=== PATIENT | female | born 1985 | race Caucasian/White ===

== ENCOUNTER 2017-12-28 15:00 | Emergency (ER) | payer OTHER ==
[~2017-12-28] VITALS: Ht 162.6 cm; Wt 100.0 kg
[~2017-12-28 15:00] MED LIST: DEPA500T3 PO; GEOD80CA PO; LEVO.05 PO; PROZ40CA PO
[2017-12-28 15:09] VITALS: BP 117/61; PULSE 95; RESP 16; TEMP 98.3; O2SAT 99
[2017-12-28 15:42] LABS: AUTOMATED NEUTROPHIL # 4.7 TH/MM3 (1.8-7.7); BASOPHIL # 0.1 TH/MM3 (0-0.2); BASOPHIL % 0.7 % (0.0-2.0); EOSINOPHIL # 0.2 TH/MM3 (0-0.4); EOSINOPHIL % 2.7 % (0.0-4.0); HEMATOCRIT 42.4 % (35.0-46.0); HEMOGLOBIN 14.5 GM/DL (11.6-15.3); LYMPH % 26.6 % (9.0-44.0); LYMPHOCYTE # 2.1 TH/MM3 (1.0-4.8); MEAN CELL VOLUME 84.5 FL (80.0-100.0); MEAN CORPUSCULAR HEMOGLOBIN 28.8 PG (27.0-34.0); MEAN CORPUSCULAR HGB CONC 34.1 % (32.0-36.0); MEAN PLATELET VOLUME 8.6 FL (7.0-11.0); MONO % 8.4 % (0.0-8.0); MONOCYTE # 0.6 TH/MM3 (0-0.9); NEUT % 61.6 % (16.0-70.0); PLATELET COUNT 245 TH/MM3 (150-450); RED BLOOD COUNT 5.02 MIL/MM3 (4.00-5.30); RED CELL DISTRIBUTION WIDTH 13.1 % (11.6-17.2); WHITE BLOOD COUNT 7.7 TH/MM3 (4.0-11.0)
[2017-12-28 15:54] LABS: BILIRUBIN, URINE NEG (NEG); BLOOD, URINE NEG (NEG); GLUCOSE,URINE NEG (NEG); KETONE, URINE NEG (NEG); NITRITE,URINE NEG (NEG); SQUAMOUS EPITHELIAL CELL URINE 4 /hpf (0-5); URINE COLOR YELLOW (YELLW/STRAW); URINE LEUKOCYTE ESTERASE NEG (NEG)
[2017-12-28 16:04] LABS: ALBUMIN 3.9 GM/DL (3.4-5.0); AST (GOT) 25 U/L (15-37); BICARBONATE 22.8 MEQ/L (21.0-32.0); BLOOD UREA NITROGEN 19 MG/DL (7-18); CALCIUM 9.8 MG/DL (8.5-10.1); CHLORIDE 107 MEQ/L (98-107); CREATININE 1.04 MG/DL (0.50-1.00); GLOMERULAR FILTRATION RATE 61 ML/MIN (>89); GLUCOSE,RANDOM 89 MG/DL (74-106); SODIUM (NA) 140 MEQ/L (136-145)
[2017-12-28 16:05] LABS: ALT (GPT) 42 U/L (10-53)
[2017-12-28 16:14] LABS: ALKALINE PHOSPHATASE 66 U/L (45-117); TOTAL BILIRUBIN ADULT 0.3 MG/DL (0.2-1.0); TOTAL PROTEIN 7.6 GM/DL (6.4-8.2)
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
[2017-12-28] MEDS ORDERED: ACETAMINOPHEN 325 MG TAB PO ONE (16:45)
[2017-12-28 17:01] VITALS: BP 145/85; PULSE 89; RESP 16; TEMP 98.6; O2SAT 99
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
[2017-12-28] MEDS ORDERED: DIVA500T3 PO (18:05)
[2017-12-28] MEDS ORDERED: PROZ40CA PO (18:06)
[2017-12-28] MEDS ORDERED: LEVO.05 PO (18:07)
[2017-12-28] MEDS ORDERED: METF500T PO (18:08)
[2017-12-28] MEDS ORDERED: GEOD80CA PO (18:08)
[2017-12-28 22:22] VITALS: BP 112/60; PULSE 93; RESP 18; TEMP 98.6; O2SAT 98
[2017-12-29 02:17] VITALS: BP 132/60; PULSE 82; RESP 16; TEMP 97.7; O2SAT 97
--- NOTE | 2017-12-29 09:56 | RADRPT ---
EXAM DATE/TIME: 12/29/2017 09:35 [facility] COMPARISON: No previous studies available for comparison. INDICATIONS : Lower abdomen pain MEDICAL HISTORY : None. SURGICAL HISTORY : None. ENCOUNTER: Initial ACUITY: 1 day PAIN SCORE: 8/10 LOCATION: abdomen FINDINGS: Supine and upright views of the abdomen were performed. The abdominal bowel gas pattern is normal. No air fluid levels are seen. No abnormal masses, calcifications, or organomegaly is seen. The visu alized lower lungs are clear. No evidence of free intraperitoneal gas. The osseous structures are u nremarkable. CONCLUSION: Normal examination. Angela Mendoza MD on December 29, 2017 at 9:54 Board Certified Radiologist. This report was verified electronically.
[2017-12-29] MEDS ORDERED: ACETAMINOPHEN 325 MG TAB PO ONE (10:15)
--- NOTE | 2017-12-29 11:44 | RADRPT ---
EXAM DATE/TIME: 12/29/2017 11:10 [facility] COMPARISON: No previous studies available for comparison. INDICATIONS : Pelvic pain. MEDICAL HISTORY : Thyroid disease. Fibroid tumor on the brain. Depression. Anxiety. Bipolar disorder. SURGICAL HISTORY : Right breast surgery. ENCOUNTER: Initial ACUITY: 1 week PAIN SCORE: 6/10 LOCATION: Bilateral pelvis MEASUREMENTS: UTERUS: 6.5 x 2.3 x 2.5 cm ENDOMETRIAL STRIPE: 4 mm RIGHT OVARY: 2.6 x 2.0 x 2.7 cm LEFT OVARY: 2.5 x 1.6 x 1.3 cm FINDINGS: UTERUS: The myometrium has homogeneous echotexture without mass. RIGHT OVARY: Ovary contains no mass or significant cystic lesion. LEFT OVARY: Ovary contains no mass or significant cystic lesion. MISCELLANEOUS: No free fluid. CONCLUSION: Normal examination. Angela Mendoza MD on December 29, 2017 at 11:42 Board Certified Radiologist. This report was verified electronically.
--- NOTE | 2017-12-29 12:04 | PD ---
Physical Exam Narrative I was asked by adjunct psychology instructor to reevaluate patient is now she is complaining of left lower quadrant abdominal pain. Patient states that pain began when she got to the emergency department over 18 hours ago. Patient she has anything at the time of the pain seems to be getting worse. Patient rates pain as a sharp stabbing pain in her left lower quadrant without radiation. Patient denies anything making it better or worse. Patient uncertain last time she had a bowel movement. Patient denies any loss change in bowel or bladder. Denies any vaginal discharge or fevers. Denies any back pain. GENERAL: Well-developed, overly nourished, in no acute distress, and non-ill appearing. SKIN: Focused skin assessment warm and dry. HEAD: Atraumatic. Normocephalic. EYES: Pupils equal and round. EOMI. No scleral icterus. No injection or drainage. ENT: No nasal bleeding or discharge. Mucous membranes pink and moist. NECK: Trachea midline.Supple. No nuclear rigidity. RESPIRATORY: No accessory muscle use. No respiratory distress. GASTROINTESTINAL: Abdomen soft, nondistended, and no guarding. Hepatic and splenic margins not palpable. Normal bowel sounds x4. No pulsatile mass. Patient reports tenderness palpation left lower quadrant of the abdomen. PELVIC: Patient refused. MUSCULOSKELETAL: No obvious deformities. No clubbing. No cyanosis. No edema. Full range of motion. NEUROLOGICAL: Awake and alert. No obvious cranial nerve deficits. Motor grossly within normal limits. Normal speech. PSYCHIATRIC: Appropriate mood and affect; insight and judgment normal. Data Data Last Documented VS Vital Signs Date Time Temp Pulse Resp B/P (MAP) Pulse Ox O2 Delivery O2 Flow Rate FiO2 12/29/17 14:08 98.7 86 16 129/82 (98) 98 Room Air Orders Orders Complete Blood Count With Diff (12/28/17 15:07) Comprehensive Metabolic Panel (12/28/17 15:07) Thyroid Stimulating Hormone (12/28/17 15:07) Drug Screen, Random Urine (12/28/17 15:07) Urinalysis - C+S If Indicated (12/28/17 15:07) Psych Screen (12/28/17 15:07) Ct Brain W/O Iv Contrast(Rout) (12/28/17 ) Acetaminophen (Tylenol) (12/28/17 16:45) Valproic Acid (Depakene) (12/28/17 15:24) Diet Regular Basic (12/29/17 Breakfast) Abdomen, Flat & Upright (12/29/17 ) Ed Urine Pregnancytest Poc (12/29/17 09:38) Acetaminophen (Tylenol) (12/29/17 10:15) Diet Regular Basic (12/29/17 Lunch) Us Pelvis Comp W Doppler (12/29/17 ) Diet Regular Basic (12/29/17 Dinner) Labs Laboratory Tests Test 12/28/17 15:23 12/28/17 15:24 Urine Color YELLOW Urine Turbidity CLEAR Urine pH 8.0 Urine Specific [place] 1.027 Urine Protein TRACE mg/dL Urine Glucose (UA) NEG mg/dL Urine Ketones NEG mg/dL Urine Occult Blood NEG Urine Nitrite NEG Urine Bilirubin NEG Urine Urobilinogen LESS THAN 2.0 MG/DL Urine Leukocyte Esterase NEG Urine RBC LESS THAN 1 /hpf Urine WBC LESS THAN 1 /hpf Urine Squamous Epithelial Cells 4 /hpf Microscopic Urinalysis Comment CULT NOT INDICATED Urine Opiates Screen NEG Urine Barbiturates Screen NEG Urine Amphetamines Screen NEG Urine Benzodiazepines Screen NEG Urine Cocaine Screen NEG Urine Cannabinoids Screen NEG White Blood Count 7.7 TH/MM3 Red Blood Count 5.02 MIL/MM3 Hemoglobin 14.5 GM/DL Hematocrit 42.4 % Mean Corpuscular Volume 84.5 FL Mean Corpuscular Hemoglobin 28.8 PG Mean Corpuscular Hemoglobin Concent 34.1 % Red Cell Distribution Width 13.1 % Platelet Count 245 TH/MM3 Mean Platelet Volume 8.6 FL Neutrophils (%) (Auto) 61.6 % Lymphocytes (%) (Auto) 26.6 % Monocytes (%) (Auto) 8.4 % Eosinophils (%) (Auto) 2.7 % Basophils (%) (Auto) 0.7 % Neutrophils # (Auto) 4.7 TH/MM3 Lymphocytes # (Auto) 2.1 TH/MM3 Monocytes # (Auto) 0.6 TH/MM3 Eosinophils # (Auto) 0.2 TH/MM3 Basophils # (Auto) 0.1 TH/MM3 CBC Comment DIFF FINAL Differential Comment Blood Urea Nitrogen 19 MG/DL Creatinine 1.04 MG/DL Random Glucose 89 MG/DL Total Protein 7.6 GM/DL Albumin 3.9 GM/DL Calcium Level 9.8 MG/DL Alkaline Phosphatase 66 U/L Aspartate Amino Transf (AST/SGOT) 25 U/L Alanine Aminotransferase (ALT/SGPT) 42 U/L Total Bilirubin 0.3 MG/DL Sodium Level 140 MEQ/L Potassium Level 4.3 MEQ/L Chloride Level 107 MEQ/L Carbon Dioxide Level 22.8 MEQ/L Anion Gap 10 MEQ/L Estimat Glomerular Filtration Rate 61 ML/MIN Thyroid Stimulating Hormone 3rd Gen 1.650 uIU/ML Valproic Acid (Depakene) Level 53 MCG/ML MDM Medical Record Reviewed: Yes Supervised Visit with DORI: No Interpretation(s) Abdominal x-ray and ultrasound were both normal read by the radiologist. Differential Diagnosis Constipation, ovarian cyst, PID, diverticulitis Narrative Course Patient was seen and examined. X-ray and ultrasound were obtained results reviewed. Patient was given Tylenol for pain. Patient was then bathroom when I went to discuss all findings with patient. Patient returned to her room reports that she had a bowel movement and symptoms have resolved. Patient was seen and examined. Radiological were obtained and reviewed. Patient medically cleared for further treatment and evaluation by psych. Final disposition per psych. 1700 I was asked by the psych department to discharge patient after patient was evaluated and Goldberg acted lifted by psych. Patient was previously medically cleared. Patient denies any homicidal or suicidal ideations. Denies any medical concerns at this time. Patient in no obvious distress upon re-evaluation. All pertinent laboratory/ Radiology result(s) discussed with patient. Any questions/concerns in reference to patient diagnosis/condition discussed and clarified prior to patient's discharge. Reinforced sheer importance of close follow up with patient 's primary physician or primary care clinic. Instructed patient to return to ED immediately, if symptoms return/worsen. Patient showed understanding of above instructions. Further instructions and recommendations were detailed in discharge paperwork. Patient ambulated without difficulty out of ED at discharge. Diagnosis Primary Impression: Medical clearance for psychiatric admission Additional Impression: Acute constipation Referrals: [facility] Patient Instructions: General Instructions Additional Instruction: Follow-up with your primary care physician this week for reevaluation. Use over -the-counter stool softeners and/or laxatives as needed for constipation. Follow instructions on the packaging. Drink plenty of non-caffeinated nonalcoholic fluids. Return to the emergency department if symptoms get worse. Disposition: 01 DISCHARGE HOME Condition: Stable Selvin Hightower Dec 29, 2017 12:04
[2017-12-29 14:08] VITALS: BP 129/82; PULSE 86; RESP 16; TEMP 98.7; O2SAT 98
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
[2017-12-29 18:12] VITALS: BP 125/72; PULSE 95; RESP 16; TEMP 98.7; O2SAT 99
== END 2017-12-29 18:58 | disposition home or self-care (01) ==
LOC: NEPJ 15:00
DX: Z04.6 Encounter for general psychiatric examination, requested by authority (principal); K59.00 Constipation, unspecified; F31.9 Bipolar disorder, unspecified; F41.9 Anxiety disorder, unspecified; E07.9 Disorder of thyroid, unspecified
CPT/HCPCS: 70450; 74019; 76856; 80053; 80164; 80307; 81001; 84443; 84703; 85025; 93975; 99284

== ENCOUNTER 2018-02-28 22:42 | Emergency (ER) | payer OTHER ==
[~2018-02-28] VITALS: Ht 162.6 cm; Wt 87.0 kg
[~2018-02-28 22:42] MED LIST changes: -DEPA500T3 PO; +DIVA500T3 PO; +METF500T PO
[2018-02-28 23:40] VITALS: BP 125/72; PULSE 82; RESP 15; TEMP 98.5; O2SAT 100
--- NOTE | 2018-02-28 23:46 | PD ---
HPI Chief Complaint: Musculoskeletal Complaint Time Seen by Provider: 23:25 Travel History International Travel<30 days: No Contact w/Intl Traveler<30days: No Traveled to known affect area: No History of Present Illness HPI The patient is a 32-year-old female who presents to the emergency department from [facility] for evaluation of right ankle pain. The patient is currently in [facility] for behavioral disturbances associated with mental disability. The patient apparently was angry earlier today and kicked a desk with her right ankle. She now complains of pain over the lateral aspect of the right ankle. She was administered Tylenol for pain, however, continues to have pain. The pain is worse with palpation and ambulation, she states she is unable to bear weight on the affected ankle. She denies any foot pain or knee pain. Symptoms are moderate. She does note mild swelling of the affected area. She denies any previous fracture to the right ankle. She denies any numbness or tingling to the right foot. 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) Psychiatric: Yes (MMR,ANXIETY,BIPOLAR) Thyroid Disease: Yes : 0 Past Surgical History Other Surgery: Yes (Hx surgery on right breast per pt.) Social History Alcohol Use: No Tobacco Use: No Substance Use: No Allergies-Medications (Allergen,Severity, Reaction): Coded Allergies: adhesive (Unverified Allergy, Severe, redness, 02/28/18) codeine (Unverified Allergy, Severe, 02/28/18) ibuprofen (Unverified Allergy, Severe, 02/28/18) Reported Meds & Prescriptions Reported Meds & Active Scripts Active Reported Metformin (Metformin HCl) 500 Mg Tab 500 Mg PO BIDPC Geodon (Ziprasidone) 80 Mg Cap 80 Mg PO BID Synthroid (Levothyroxine Sodium) 50 Mcg Tab 50 Mcg PO DAILY Prozac (Fluoxetine HCl) 40 Mg Cap 40 Mg PO DAILY Divalproex ER (Divalproex Sodium) 500 Mg Tab 500 Mg PO BID Review of Systems Except as stated in HPI: all other systems reviewed are Neg Musculoskeletal: Positive: Limited ROM, Edema, Pain Neurologic: No: Paresthesia, Sensory Disturbance Physical Exam Narrative GENERAL: Awake, alert, pleasant 32-year-old female who appears her stated age and is in no acute respiratory distress. SKIN: Focused skin assessment warm/dry. HEAD: Atraumatic. Normocephalic. EYES: No injection or drainage. MUSCULOSKELETAL: The patient has mild edema over the lateral aspect of the right ankle over the lateral malleolus. There is mild tenderness of the lateral malleus. No tenderness at the base of the fourth and fifth metatarsal. No tenderness of the proximal right fibula and tibia. Positive dorsalis pedal pulses. NEUROLOGICAL: Awake and alert. No obvious cranial nerve deficits. Motor grossly within normal limits. Normal speech. Sensation is intact with medial, lateral, dorsal aspect of the right foot. PSYCHIATRIC: Appropriate mood and affect; insight and judgment normal. Data Data Last Documented VS Vital Signs Date Time Temp Pulse Resp B/P (MAP) Pulse Ox O2 Delivery O2 Flow Rate FiO2 02/28/18 23:40 98.5 82 15 125/72 (89) 100 Orders Orders Ankle, Complete ([id number]) (02/28/18 ) [facility] Medical Decision Making Medical Screen Exam Complete: Yes Emergency Medical Condition: Yes Medical Record Reviewed: Yes Interpretation(s) Last Impressions Ankle X-Ray 02/28/18 0000 Signed Impressions: Service Date/Time: February 23:50 - CONCLUSION: Unremarkable examination of the right ankle. Daniel Maya Jr., MD Differential Diagnosis Differential diagnosis includes fracture, dislocation, contusion, hematoma, sprain, strain. Narrative Course X-ray of the right ankle was obtained, 3 view. The patient declined pain medication in the emergency department. X-ray of the right ankle is unremarkable. The patient will have the ankle placed in an Goldy wrap, is advised to elevate and ice. Tylenol as needed for pain. Diagnosis Primary Impression: Right ankle pain Qualified Codes: M25.571 - Pain in right ankle and joints of right foot Patient Instructions: General Instructions Additional Instructions: Elevate, ice, Tylenol as needed for pain. Goldy wrap as directed. Please provide the patient a copy of her x-ray results at discharge. Transfer back to [facility]. Disposition: 01 DISCHARGE HOME Condition: Stable Gunnar Huerta MD February 28, 2018 23:46
--- NOTE | 2018-03-01 00:17 | RADRPT ---
EXAM DATE/TIME: 02/28/2018 23:50 [facility] COMPARISON: No previous studies available for comparison. INDICATIONS : Ankle pain. MEDICAL HISTORY : None. SURGICAL HISTORY : None. ENCOUNTER: Initial ACUITY: 1 day PAIN SCORE: 9/10 LOCATION: Right ankle FINDINGS: Three view exam was performed of the right ankle. The bony structures are in normal alignment. No e vidence of fracture, dislocation, or soft tissue swelling. The ankle mortise is intact. No radiopaq ue foreign bodies are seen. Bony mineralization is normal. CONCLUSION: Unremarkable examination of the right ankle. Daniel Maya Jr., MD on March 01, 2018 at 0:16 Board Certified Radiologist. This report was verified electronically.
== END 2018-03-01 01:58 | disposition home or self-care (01) ==
LOC: NEPD 22:42
DX: M25.571 Pain in right ankle and joints of right foot (principal); M79.671 Pain in right foot; W22.09XA Striking against other stationary object, initial encounter; Y92.89 Other specified places as the place of occurrence of the external cause
CPT/HCPCS: 73610; 99283

== ENCOUNTER 2018-03-13 17:06 | Emergency (ER) | payer OTHER ==
[~2018-03-13] VITALS: Ht 162.6 cm; Wt 102.0 kg
[2018-03-13 17:14] VITALS: BP 141/65; PULSE 94; RESP 16; TEMP 98.4; O2SAT 100
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
[2018-03-13] MEDS ORDERED: ACETAMINOPHEN 325 MG TAB PO ONE (17:45)
[2018-03-13 18:07] LABS: AUTOMATED NEUTROPHIL # 4.3 TH/MM3 (1.8-7.7); BASOPHIL # 0.1 TH/MM3 (0-0.2); BASOPHIL % 0.7 % (0.0-2.0); EOSINOPHIL # 0.3 TH/MM3 (0-0.4); EOSINOPHIL % 4.3 % (0.0-4.0); HEMATOCRIT 42.9 % (35.0-46.0); HEMOGLOBIN 14.5 GM/DL (11.6-15.3); LYMPH % 33.2 % (9.0-44.0); LYMPHOCYTE # 2.7 TH/MM3 (1.0-4.8); MEAN CELL VOLUME 85.1 FL (80.0-100.0); MEAN CORPUSCULAR HEMOGLOBIN 28.8 PG (27.0-34.0); MEAN CORPUSCULAR HGB CONC 33.8 % (32.0-36.0); MEAN PLATELET VOLUME 9.2 FL (7.0-11.0); MONO % 8.2 % (0.0-8.0); MONOCYTE # 0.7 TH/MM3 (0-0.9); NEUT % 53.6 % (16.0-70.0); PLATELET COUNT 242 TH/MM3 (150-450); RED BLOOD COUNT 5.04 MIL/MM3 (4.00-5.30); RED CELL DISTRIBUTION WIDTH 12.8 % (11.6-17.2)
[2018-03-13 18:35] LABS: ALBUMIN 3.8 GM/DL (3.4-5.0); ALT (GPT) 44 U/L (10-53); AST (GOT) 29 U/L (15-37); BICARBONATE 25.3 MEQ/L (21.0-32.0); BLOOD UREA NITROGEN 23 MG/DL (7-18); CALCIUM 8.7 MG/DL (8.5-10.1); CHLORIDE 105 MEQ/L (98-107); CREATININE 1.06 MG/DL (0.50-1.00); GLOMERULAR FILTRATION RATE 59 ML/MIN (>89); GLUCOSE,RANDOM 93 MG/DL (74-106); SODIUM (NA) 140 MEQ/L (136-145)
[2018-03-13 18:36] LABS: ALKALINE PHOSPHATASE 68 U/L (45-117); TOTAL BILIRUBIN ADULT 0.3 MG/DL (0.2-1.0); TOTAL PROTEIN 7.3 GM/DL (6.4-8.2)
[2018-03-13] MEDS ORDERED: METF1000 PO (19:14)
[2018-03-13] MEDS ORDERED: METF500T PO (19:14)
[2018-03-13] MEDS ORDERED: MULTTAB67 PO (19:14)
[2018-03-13] MEDS ORDERED: LEVO75TA3 PO (19:14)
[2018-03-13] MEDS ORDERED: LACT10SO PO (19:14)
[2018-03-13] MEDS ORDERED: LURA80 PO (19:21)
[2018-03-13] MEDS ORDERED: FIBE500T PO (19:21)
[2018-03-13] MEDS ORDERED: DOCU1CAP25 PO (19:21)
[2018-03-13] MEDS ORDERED: VIST50CA PO (19:21)
[2018-03-13 22:31] VITALS: BP 106/52; PULSE 81; RESP 18; TEMP 97.8; O2SAT 97
[2018-03-14 02:48] VITALS: BP 133/80; PULSE 78; RESP 18; TEMP 98.1; O2SAT 98
[2018-03-14 06:26] VITALS: BP 134/68; PULSE 70; RESP 16; TEMP 98.1; O2SAT 99
--- NOTE | 2018-03-14 08:34 | PD.PSY.CON ---
Provisional Diagnosis Admission Date Date of consultation 03/14/2018 [place] I. 1. Adjustment disorder with disturbance of conduct [place] II. 1. Intellectual disability History of Present Illness Service Psychiatry Consult Requested By Emergency department Reason for Consult Goldberg act Primary Care Physician Luz Elena Woodson MD HPI Ms. Huff is 32-year-old female with history of adjustment disorder and intellectual disability who presents under a Goldberg act by law enforcement alleging that the patient acted out at her correction. Reviewing the electronic medical record, I note the patient was seen in consultation most recently by myself in December of this year. Patient seen and examined. Chart reviewed. Case discussed with nursing staff. Per nursing staff, patient has been no behavioral problem overnight. On my examination today, the patient is calm and cooperative with exam. Regarding her presenting behavioral disturbance the patient says "I was just angry, I went off." She says that she does not like the correction that she is staying at. "I just do not want to be there." She denies any suicidal or homicidal ideation, intent or plan. I can elicit no depressive or hypomanic/manic symptoms. Affect is reactive and generally euthymic. She brightens considerably when discussing her upcoming wedding. She denies audiovisual hallucinations. I can elicit no delusional material. There is no evidence of impairment in reality construction. Remainder of the psychiatric ROS is negative. No acute physical complaints. I obtained past psychiatric, family, chemical dependency and social history during my consultation back in December. This is materially unchanged except that the patient has set an July wedding date with her fiance Francheska. She proudly shows me her engagement ring. Review of Systems Except as stated in HPI: all other systems reviewed are Neg Past Family Social History Coded Allergies: adhesive (Unverified Allergy, Severe, redness, 02/28/18) codeine (Unverified Allergy, Severe, 02/28/18) ibuprofen (Unverified Allergy, Severe, 02/28/18) Past Medical History See EMR Reported Medications Methylcellulose (Fiber Therapy) 500 Mg Tab, 2 TAB PO HS Y for Prevent Constipation, #30 TAB 0 Refills 03/13/18 Docusate Calcium (Stool Softener) 240 Mg Cap, 240 MG PO HS 03/13/18 Lurasidone (Latuda) 80 Mg Tab, 80 MG PO HS, #30 TAB 0 Refills 03/13/18 Hydroxyzine Pamoate (Vistaril) 50 Mg Cap, 100 MG PO HS, CAP 0 Refills 03/13/18 Lactulose Liq (Lactulose Liq) 10 Gm/15 Ml Soln, 30 ML PO HS, ML 0 Refills 03/13/18 Metformin (Metformin) 500 Mg Tab, 500 MG PO DAILY for Blood Sugar Management, # 30 TAB 0 Refills With a meal 03/13/18 Metformin (Metformin) 1,000 Mg Tab, 1000 MG PO HS for Blood Sugar Management, # 30 TAB 0 Refills With a meal 03/13/18 Multiple Vitamin (Multiple Vitamin) 1 Tab, 1 TAB PO DAILY for Nutritional Supplement, TAB 0 Refills 03/13/18 Levothyroxine (Levothyroxine) 75 Mcg Tab, 75 MCG PO DAILY for Thyroid, #30 TAB 0 Refills 03/13/18 Fluoxetine (Prozac) 40 Mg Cap, 40 MG PO DAILY, #30 CAP 0 Refills 12/28/17 Divalproex ER (Divalproex ER) 500 Mg Tab, 500 MG PO BID for Control Seizures, # 30 TAB 0 Refills 12/28/17 Discontinued Reported Medications Metformin (Metformin) 500 Mg Tab, 500 MG PO BIDPC for Blood Sugar Management, # 60 TAB 0 Refills 12/28/17 Ziprasidone (Geodon) 80 Mg Cap, 80 MG PO BID, #60 CAP 0 Refills 12/28/17 Levothyroxine (Synthroid) 50 Mcg Tab, 50 MCG PO DAILY for Thyroid, #30 TAB 0 Refills 12/28/17 Patient's Strengths (min. 2) Existing outpatient services. Verbally fluent. Physical Exam Physical exam completed by ED provider. On my examination today, the patient appears to be in no acute physical distress. No motor abnormalities noted. Labs and vitals reviewed: Vital Signs Vital Signs Date Time Temp Pulse Resp B/P (MAP) Pulse Ox O2 Delivery O2 Flow Rate FiO2 03/14/18 06:26 98.1 70 16 134/68 (90) 99 03/13/18 22:31 Room Air Lab Results Test 03/13/18 17:12 03/13/18 19:25 White Blood Count 8.0 TH/MM3 Red Blood Count 5.04 MIL/MM3 Hemoglobin 14.5 GM/DL Hematocrit 42.9 % Mean Corpuscular Volume 85.1 FL Mean Corpuscular Hemoglobin 28.8 PG Mean Corpuscular Hemoglobin Concent 33.8 % Red Cell Distribution Width 12.8 % Platelet Count 242 TH/MM3 Mean Platelet Volume 9.2 FL Neutrophils (%) (Auto) 53.6 % Lymphocytes (%) (Auto) 33.2 % Monocytes (%) (Auto) 8.2 % Eosinophils (%) (Auto) 4.3 % Basophils (%) (Auto) 0.7 % Neutrophils # (Auto) 4.3 TH/MM3 Lymphocytes # (Auto) 2.7 TH/MM3 Monocytes # (Auto) 0.7 TH/MM3 Eosinophils # (Auto) 0.3 TH/MM3 Basophils # (Auto) 0.1 TH/MM3 CBC Comment DIFF FINAL Differential Comment Blood Urea Nitrogen 23 MG/DL Creatinine 1.06 MG/DL Random Glucose 93 MG/DL Total Protein 7.3 GM/DL Albumin 3.8 GM/DL Calcium Level 8.7 MG/DL Alkaline Phosphatase 68 U/L Aspartate Amino Transf (AST/SGOT) 29 U/L Alanine Aminotransferase (ALT/SGPT) 44 U/L Total Bilirubin 0.3 MG/DL Sodium Level 140 MEQ/L Potassium Level 4.6 MEQ/L Chloride Level 105 MEQ/L Carbon Dioxide Level 25.3 MEQ/L Anion Gap 10 MEQ/L Estimat Glomerular Filtration Rate 59 ML/MIN Thyroid Stimulating Hormone 3rd Gen 2.100 uIU/ML Ethyl Alcohol Level LESS THAN 3 MG/DL Urine Opiates Screen NEG Urine Barbiturates Screen NEG Urine Amphetamines Screen NEG Urine Benzodiazepines Screen NEG Urine Cocaine Screen NEG Urine Cannabinoids Screen NEG Mental Status Examination Appearance: Appropriate Consciousness: Alert Orientation: Person, Place (At least) Motor Activity: Other (No motor abnormalities noted) Speech: Unremarkable Language: Adequate Fund of Knowledge: Inadequate Attention and Concentration: Adequate Memory: Unremarkable Mood: Appropriate Affect: Appropriate, Euthymic Thought Process & Associations: Intact Thought Content: Appropriate Hallucination Type: None Delusion Type: None Suicidal Ideation: No Suicidal Plan: No Suicidal Intention: No Homicidal Ideation: No Homicidal Plan: No Homicidal Intention: No Mental Status Exam Remarks Insight and judgment are likely chronically poor Assessment & Plan Problem List: (1) Adjustment disorder with disturbance of conduct ICD Codes: F43.24 - Adjustment disorder with disturbance of conduct (2) Intellectual disability ICD Codes: F79 - Unspecified intellectual disabilities Assessment & Plan 32-year-old female with psychiatric history as detailed above who presents under Goldberg act. On my examination today, the patient is calm and cooperative. She tells me that she acted out because she does not like the correction that she is staying at. There is no evidence of any sort of unstable mental illness as defined under the Goldberg act. She is denying suicidal or homicidal ideation. Synthesizing the available clinical data, I statue carver that the patient does not meet the Goldberg act criteria. I have lifted the Goldberg act. Patient would not benefit from inpatient psychiatric hospitalization at this time. Patient to follow up with outpatient mental health provider. Patient to return to psychiatric emergency room for any concerning psychiatric symptoms as part of a general safety plan. Patient is otherwise psychiatrically clear for discharge from the ED. Thank you very much for this consultation. Aaron Wynn MD March 14, 2018 08:34
--- NOTE | 2018-03-14 10:21 | PD ---
Physical Exam Time Seen by Provider: 10:[address] Flores has evaluated the patient, lifted Goldberg act and cleared the patient for discharge. Data Data Last Documented VS Vital Signs Date Time Temp Pulse Resp B/P (MAP) Pulse Ox O2 Delivery O2 Flow Rate FiO2 03/14/18 06:26 98.1 70 16 134/68 (90) 99 03/13/18 22:31 Room Air Orders Orders Complete Blood Count With Diff (03/13/18 17:35) Comprehensive Metabolic Panel (03/13/18 17:35) Thyroid Stimulating Hormone (03/13/18 17:35) Psych Screen (03/13/18 17:35) Drug Screen, Random Urine (03/13/18 17:35) Alcohol (Ethanol) (03/13/18 17:35) Acetaminophen (Tylenol) (03/13/18 17:45) Diet Regular Basic (03/13/18 Dinner) Diet Regular Basic (03/14/18 Breakfast) Diet Regular Basic (03/14/18 Lunch) Ondansetron Odt (Zofran Odt) (03/14/18 10:30) Labs Laboratory Tests Test 03/13/18 17:12 03/13/18 19:25 White Blood Count 8.0 TH/MM3 Red Blood Count 5.04 MIL/MM3 Hemoglobin 14.5 GM/DL Hematocrit 42.9 % Mean Corpuscular Volume 85.1 FL Mean Corpuscular Hemoglobin 28.8 PG Mean Corpuscular Hemoglobin Concent 33.8 % Red Cell Distribution Width 12.8 % Platelet Count 242 TH/MM3 Mean Platelet Volume 9.2 FL Neutrophils (%) (Auto) 53.6 % Lymphocytes (%) (Auto) 33.2 % Monocytes (%) (Auto) 8.2 % Eosinophils (%) (Auto) 4.3 % Basophils (%) (Auto) 0.7 % Neutrophils # (Auto) 4.3 TH/MM3 Lymphocytes # (Auto) 2.7 TH/MM3 Monocytes # (Auto) 0.7 TH/MM3 Eosinophils # (Auto) 0.3 TH/MM3 Basophils # (Auto) 0.1 TH/MM3 CBC Comment DIFF FINAL Differential Comment Blood Urea Nitrogen 23 MG/DL Creatinine 1.06 MG/DL Random Glucose 93 MG/DL Total Protein 7.3 GM/DL Albumin 3.8 GM/DL Calcium Level 8.7 MG/DL Alkaline Phosphatase 68 U/L Aspartate Amino Transf (AST/SGOT) 29 U/L Alanine Aminotransferase (ALT/SGPT) 44 U/L Total Bilirubin 0.3 MG/DL Sodium Level 140 MEQ/L Potassium Level 4.6 MEQ/L Chloride Level 105 MEQ/L Carbon Dioxide Level 25.3 MEQ/L Anion Gap 10 MEQ/L Estimat Glomerular Filtration Rate 59 ML/MIN Thyroid Stimulating Hormone 3rd Gen 2.100 uIU/ML Ethyl Alcohol Level LESS THAN 3 MG/DL Urine Opiates Screen NEG Urine Barbiturates Screen NEG Urine Amphetamines Screen NEG Urine Benzodiazepines Screen NEG Urine Cocaine Screen NEG Urine Cannabinoids Screen NEG MDM Supervised Visit with [facility]ORI: No Narrative Course Dr. Flores has evaluated the patient, lifted [facility] and cleared the patient for discharge. Patient contracts safety. Denies suicidal or homicidal ideations. Patient will be provided community resource packet to [facility] for follow-up. Has friends and family for support. Patient was medically cleared by alternate provider prior to psych screening. Patient has been evaluated by psychiatry and and is now cleared for discharge. Diagnosis Primary Impression: Adjustment disorder with disturbance of conduct Referrals: [facility] (Out patient) [facility] Primary Care Physician Psychiatrist Raj [facility] Patient Instructions: General Instructions, Mood Disorders (ED) Additional Instruction: Contract safety to your self and others Follow-up with psychiatry Follow-up with primary care provider Follow-up with Domo Casarez Return to the emergency department immediately with worsening of symptoms Med/Other Pt SpecificInfo: No Change to Meds, No Meds Exist/No RX given Disposition: 01 DISCHARGE HOME Condition: Stable Daria SmithP March 14, 2018 10:21
[2018-03-14] MEDS ORDERED: ONDANSETRON ODT 4 MG TAB PO ONE (10:30)
[2018-03-14 14:50] VITALS: BP 127/62; PULSE 83; RESP 16; O2SAT 98
== END 2018-03-14 15:12 | disposition home or self-care (01) ==
LOC: NEPJ 17:06
DX: F43.24 Adjustment disorder with disturbance of conduct (principal); F79 Unspecified intellectual disabilities; M54.2 Cervicalgia; E11.9 Type 2 diabetes mellitus without complications; F32.9 Major depressive disorder, single episode, unspecified; Z88.5 Allergy status to narcotic agent; Z88.6 Allergy status to analgesic agent; Z79.84 Long term (current) use of oral hypoglycemic drugs; Z79.899 Other long term (current) drug therapy
CPT/HCPCS: 80053; 80307; 84443; 85025; 99284